=== PATIENT | female | born 1980 | race Caucasian/White ===

== ENCOUNTER 2016-06-04 16:35 | Emergency (ER) | payer OTHER ==
[2016-06-04 16:51] VITALS: BP 139/110; PULSE 93; RESP 16; TEMP 98.1; O2SAT 99
--- NOTE | 2016-06-04 17:23 | EDPHY ---
H & P Time Seen by Provider: 06/04/16 17:22 HPI/ROS: CHIEF COMPLAINT: Tramadol withdrawal. HISTORY OF PRESENT ILLNESS: This is a 36-year-old female who presents because she is concerned that stopping Tramadol will cause her to have a seizure. She has taken Tramadol for a year and stopped taking it 2 days ago. Since stopping she has had diaphoresis, diarrhea, difficulty sleeping, anxiety, and fatigue. The insomnia bothers her the most. She is able to sleep for a couple of hours at a time. She also has persistent loose stools, 3 episodes daily. She denies other complaints at this time. REVIEW OF SYSTEMS: A complete 10-point review of systems was performed and is negative except for those items mentioned in the HPI. 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 Social History: Former smoker, narcotic abuse, lives alone. Smoking Status: Former smoker Physical Exam: General Appearance: Alert, calm, pleasant. Eyes: Pupils equal and round, no conjunctival pallor or injection ENT, Mouth: Mucous membranes moist Neck: Normal inspection Respiratory: Lungs are clear to auscultation Cardiovascular: Regular rate and rhythm Gastrointestinal: Abdomen is soft and non-tender Neurological: A&O, nonfocal, normal gait Skin: Warm and dry, no rash. No piloerection. Extremities: Nontender, no pedal edema Psychiatric: Mood and affect normal Constitutional: Initial Vital Signs Temperature (C) 36.7 C 06/04/16 16:47 Heart Rate 93 06/04/16 16:47 Respiratory Rate 16 06/04/16 16:47 Blood Pressure 139/110 H 06/04/16 16:47 O2 Sat (%) 99 06/04/16 16:47 O2 Delivery Mode Room Air Allergies/Adverse Reactions: No Known Allergies Allergy (Verified 06/04/16 16:51) Home Medications: Medication Instructions Recorded Ondansetron Odt [Zofran Odt] 4 mg PO Q4PRN PRN #10 tab 12/20/14 HYDROmorphone HCL [Dilaudid] 2 mg PO Q4 #6 tab 06/10/15 Ibuprofen 600 mg PO QID 3 Days 06/10/15 Tramadol HCl 06/04/16 Zolpidem Tartrate [Ambien 10 mg] 10 mg PO HS PRN #10 tablet 06/04/16 Medical Decision Making ED Course/Re-evaluation: This patient presents with a concern for tramadol withdrawal. Physical exam is normal and there is no physical evidence of opiate withdrawal. Last Tramadol dose greater than 48 hours ago. Will give her Ambien to help her sleep at night. Otherwise, I do not feel that she needs other medications such as clonidine to help with withdrawal symptoms. She is safe and stable for discharge home. Departure - Departure Disposition: Home, Routine, Self-Care Clinical Impression: Opiate withdrawal Condition: Good Instructions: Opioid Withdrawal (ED) Additional Instructions: Try using Benadryl as instructed to help you sleep at night. If this does not work then you can fill the prescription for Ambien and take it as instructed for sleep. Return to the emergency department if you experience any serious worsening of condition. Follow up with your primary care provider this week for reevaluation. If you need a primary care provider you have been given the telephone number of the on- call primary care provider and for [facility]. [facility] may be the best and quickest option. ED Case Management will call [facility] and leave a voicemail notifying them that you'll be calling. An radio installer automobile will follow up with you tomorrow. You can contact ED Case Management at [phone]. Referrals: [facility] [Outside] - As per Instructions Francine Lanier MD [Medical Doctor] - As per Instructions [facility],. [Clinic] - As per Instructions Prescriptions: Zolpidem Tartrate [Ambien 10 mg] 10 mg PO HS PRN #10 tablet PRN Reason: insomnia Report Scribed for: Madhavi Garcia Report Scribed by: Nilson Pittman Date of Report: 06/04/16 Time of Report: 17:23 Physician Review and Approval Statement: 06/04/16 17:23 Portions of this note were transcribed by a medical assistant cardiology. I personally performed a history, physical exam, medical decision making, and confirmed accuracy of information the transcribed note.
== END 2016-06-04 18:23 | disposition home or self-care (01) ==
DX: F11.23 Opioid dependence with withdrawal (principal); Z87.891 Personal history of nicotine dependence